=== PATIENT | female | born 1940 | race African-American/Black ===

== ENCOUNTER 2016-11-25 10:00 | Outpatient (RCR) | payer OTHER | END 2016-11-26 | disposition home or self-care (01) | LOC: PTY 10:00 | DX: Z96.641 Presence of right artificial hip joint (principal) ==

== ENCOUNTER 2016-11-28 13:00 | Outpatient (RCR) | payer OTHER | END 2016-12-27 | disposition home or self-care (01) | LOC: PTY 13:00 | DX: R26.9 Unspecified abnormalities of gait and mobility (principal); Z96.641 Presence of right artificial hip joint ==

== ENCOUNTER 2016-12-30 12:45 | Outpatient (RCR) | payer OTHER | END 2017-01-26 | disposition home or self-care (01) | LOC: PTY 12:45 | DX: Z47.1 Aftercare following joint replacement surgery (principal); R26.9 Unspecified abnormalities of gait and mobility; Z96.641 Presence of right artificial hip joint ==